=== PATIENT | female | born 1985 | race Caucasian/White ===

== ENCOUNTER 2020-08-08 08:36 | Emergency (ER) | payer SELFPAY ==
[2020-08-08 08:47] VITALS: BP 157/104; PULSE 102; RESP 18; TEMP 36.4; O2SAT 95; BMI 27.3
--- NOTE | 2020-08-08 08:58 | ED_ITS ---
HPI - Extremity Problem General: Chief complaint: Extremity Problem,Nontraumatic Stated complaint: Pain in Finger Time Seen by Provider: 08/08/20 08:50 History of Present Illness: HPI Narrative: Patient has history of painful warts right hand times months worsening. MD Complaint: extremity pain Onset (ago): month(s) Pain Consistency: intermittent Location: right and upper extremity Severity scale (1-10): 2 Quality: aching Radiation: none Relieving factors: nothing Exacerbating factors: palpation Associated symptoms: Reports no associated symptoms Review of Systems Narrative: Patient just moved here from [employer] has not established a primary now has warts on her fingers been present for many months and would like to get those removed Skin/Breast: Reports: other (Warts to fingers right hand) Psych: Denies: anxiety PFSH ED PFSH: Social History (Updated 08/08/20 @ 08:54 by Asher Shah RN) Smoking and tobacco status: current every day smoker cigarettes Packs smoked per day: 1 Alcohol intake: current Alcohol intake frequency: 3 or more drinks per day Alcohol type: hard liquor Substance/Drug Use: never Female Reproductive History: Date of last menstrual period: 07/25/20 Physical Exam Const: COMMON NORMALS: no acute distress Psych: COMMON NORMALS: mental status grossly normal Skin: OTHER: Right middle finger and ring finger have 2 large common warts very large one on the distal aspect of right middle finger and the right ring finger on the lateral aspect is starting a small 1 where the one from the middle fingers rubbing. No erythema no signs of infection. Course Vital Signs: Vital signs: Vital Signs Temperature 97.5 F L 08/08/20 08:47 Pulse Rate 102 H 08/08/20 08:47 Respiratory Rate 18 08/08/20 08:47 Blood Pressure 157/104 08/08/20 08:47 Pulse Oximetry 95 08/08/20 08:47 Discharge Plan Discharge Patient Disposition: Home Clinical Impression: Common wart Condition: Stable Discharge Orders: Discharge ED (Routine); Ordered 08/08/20 Ordered By: Jason Mccormick Discharge Diet: Usual diet Discharge Activity: Resume usual activity Patient Instructions: Common Wart (ED) Activity Restrictions/Additional Instructions: Follow-up at [facility] in [place] today to have wart removed. Can use [id number] products also to help with wart removal Coding Level of Care Code ED Internal Communications Intern for Aramis Hyde
== END 2020-08-08 09:02 | disposition home or self-care (01) ==
PROVIDERS: Emergency Provider Nurse Practitioner Family
DX: B07.8 Other viral warts (principal); F17.210 Nicotine dependence, cigarettes, uncomplicated
CPT/HCPCS: 99281

== ENCOUNTER 2022-03-24 18:35 | Emergency (ER) | payer MEDICAID, SELFPAY ==
[2022-03-24 18:37] VITALS: BP 185/95; PULSE 97; RESP 20; TEMP 36.4; O2SAT 97; BMI 28.5
--- NOTE | 2022-03-24 18:44 | ED_ITS ---
Documented by User: Donaldo Valdez MD 04/01/22 16:35 HPI - Overdose General: Chief Complaint: Psychiatric Symptoms Stated Complaint: OVERDOSE Time Seen by Provider: 03/24/22 18:43 Limitations: altered mental status History of Present Illness: Ms Lilly is a 37-year-old female presenting to the emergency department due to overdose. The patient herself is somewhat hysterical which limits history. She took a bunch of Tylenol earlier this afternoon at some point that was unsure of how much sure exactly what time. Additionally she consumed alcohol. She hoped that she would go to sleep and not wake up. She endorses social stressors associated with her current living and social situation. The patient expresses significant fear of going back to her current living situation though given her mental state has difficulty articulating exactly why other than she just cannot do it anymore. Overall course of symptoms has worsened. Intensity is severe. Psychiatric history apparently includes hallucinations and possible schizophrenia though it does not sound like she is on any current medications associated with that and previously was treated by her friends with LSD and methamphetamines though it sounds like this was not recent. No other specific changes in health, exacerbating, or alleviating factors identified. Intent: suicide attempt and wanted to go to sleep Review of Systems General: Reports: ROS unobtainable due to mental status [facility] ED PFSH: Medical History (Updated 03/24/22 @ 21:44 by Donaldo Valdez MD) Hallucinations HTN (hypertension) Schizophrenia Social History (Updated 03/24/22 @ 18:55 by Donaldo Valdez MD) Smoking and tobacco status: current every day smoker cigarettes Packs smoked per day: 1 Alcohol intake: current Alcohol intake frequency: 3 or more drinks per day Alcohol type: hard liquor Female Reproductive History: Date of last menstrual period: 07/25/20 Physical Exam Const: COMMON NORMALS: alert GENERAL APPEARANCE: well developed, in distress (psychiatric) and anxious HENMT: COMMON NORMALS: normocephalic and atraumatic HEAD & SCALP: normocephalic and atraumatic Eye: COMMON NORMALS: conjunctivae normal CONJUNCTIVA: Yes conjunctivae normal SCLERA: sclerae normal Neck/C-Spine: COMMON NORMALS: supple GENERAL: Yes trachea midline Resp: COMMON NORMALS: clear to auscultation bilaterally EFFORT & INSPECTION: Yes able to speak in complete sentences AUSCULTATION: clear to auscultation bilaterally Cardio: COMMON NORMALS: regular rate and regular rhythm RATE: regular rate RHYTHM: regular rhythm GI: COMMON NORMALS: Soft to palpation PALPATION: Yes Soft to palpation and No Tenderness to palpation present (GI) Extremity: GENERAL: Yes normal exam except as noted and No edema Neuro: COMMON NORMALS: moves all extremities SENSORIUM/ORIENTATION: Yes alert and No Orientation impaired Psych: ATTITUDE: Yes paranoid and Yes bizarre ACTIVITY/MOTOR BEHAVIOR: Yes psychomotor agitation SPEECH: Yes rapid MOOD & AFFECT: Yes anxious, Yes tearful and Yes fearful THOUGHT CONTENT: Yes Suicidality present INSIGHT: Poor insight present (Psych) JUDGEMENT: Poor judgement present (Psych) Course Vital Signs: Vital signs: Vital Signs Temperature 97.6 F 03/24/22 18:37 Pulse Rate 74 03/25/22 13:05 Respiratory Rate 16 03/25/22 13:05 Blood Pressure 118/71 03/25/22 13:05 Pulse Oximetry 98 03/25/22 13:05 Oxygen Delivery Me thod 03/25/22 00:49 MDM - Overdose Medical Decision Making 37-year-old female presenting with reported suicide attempt and psychiatric symptoms. Patient is nontoxic on exam and ABCs are intact. She appears somewhat hysterical/clinically intoxicated. This improved with anxiolysis. EKG shows sinus rhythm with no significant abnormalities. Labs notable for normal white blood cell count, hemoglobin normal. Metabolic panel without acute electrolyte derangement. Mild transaminitis AST 67, ALT 97 which is likely chronic related to alcohol abuse. No evidence of urinary tract infection. hCG is negative. Toxic ingestions notable for negative salicylate and acetaminophen level. Ethyl alcohol to 60 mg/dL. UDS positive for amphetamines and marijuana, also positive for benzodiazepines that these were administered prior to urine collection and may be iatrogenic positive. Based on ED evaluation and clinical history provided there is no indication for imaging. Discussed case with poison control. Given laboratory findings and reported history extremely low clinical suspicion for actual frequent Tylenol use or acute overdose. Based on poison control recommendations plan to repeat liver function and Tylenol level at approximately 6 hours. Repeat liver function and Tylenol levels are pending. If similar the patient does not require any further medical observation period as the patient denies history of chronic Tylenol ingestion and there is no toxicology literature support that I am aware of for increased acetaminophen levels beyond point of testing as the patient has been under one-to-one observation and has not taken any Tylenol since arriving in the emergency department. Please see Dr. Shay's addendum for final results. Based on ED evaluation at this point there is no obvious condition that would preclude the patient from inpatient management of psychiatric symptoms assuming no significant changes in lab studies. I believe that given the patient's reported symptoms and presenting state that she requires inpatient evaluation and stabilization as well as treatment. As we do not currently have bed availability we will plan to call around for placement. Care handed off to Dr. Shay pending placement. Medical Records I reviewed the patient's medical records. Lab Data I reviewed the patient's lab results. : 03/24/22 18:56 03/24/22 18:56 Laboratory Results WBC 7.6 10^3/uL (4.0-10.0) 03/24/22 18:56 RBC 4.44 10^6/uL (4.1-5.3) 03/24/22 18:56 Hgb 12.4 g/dL (11.5-15.3) 03/24/22 18:56 Hct 37.9 % (37.0-47.0) 03/24/22 18:56 MCV 85.4 fl (81-99) 03/24/22 18:56 MCH 27.9 pg (28.0-34.0) L 03/24/22 18:56 MCHC 32.7 g/dL (30.0-36.0) 03/24/22 18:56 RDW 18.7 % (12.1-15.1) H 03/24/22 18:56 Plt Count 345 10^3/cmm (130-400) 03/24/22 18:56 MPV 9.3 fL (7.4-10.4) 03/24/22 18:56 Neut % (Auto) 55.9 % 03/24/22 18:56 Lymph % (Auto) 34.2 % 03/24/22 18:56 Lipscomb % (Auto) 4.6 % 03/24/22 18:56 Eos % (Auto) 4.2 % 03/24/22 18:56 Baso % (Auto) 0.8 % 03/24/22 18:56 Neut # (Auto) 4.24 10^3/uL (1.8-7.7) 03/24/22 18:56 Lymph # (Auto) 2.6 10^3/uL (0.8-4.8) 03/24/22 18:56 Lipscomb # (Auto) 0.4 10^3/uL (0.2-0.9) 03/24/22 18:56 Eos # (Auto) 0.3 10^3/uL (0.0-0.8) 03/24/22 18:56 Baso # (Auto) 0.1 10^3/uL (0.0-0.1) 03/24/22 18:56 Nucleated RBC % (auto) 0 % 03/24/22 18:56 Nucleated RBCs # 0.0 /100WBC 03/24/22 18:56 Sodium 139 mmol/L (136-145) 03/24/22 18:56 Potassium 4.1 mmol/L (3.5-5.1) 03/24/22 18:56 Chloride 103 mmol/L (98-107) 03/24/22 18:56 Carbon Dioxide 22 mmol/L (22-29) 03/24/22 18:56 Anion Gap 18.1 (5-19) 03/24/22 18:56 BUN 13 mg/dL (6-20) 03/24/22 18:56 Creatinine 0.6 mg/dL (0.5-0.9) 03/24/22 18:56 GFR Calculation 112.5 mL/min (90-130) 03/24/22 18:56 Glucose 79 mg/dL (65-115) 03/24/22 18:56 Calculated Osmolality 287 mOsm/kg (285-295) 03/24/22 18:56 Calcium 9.2 mg/dL (8.5-10.5) 03/24/22 18:56 Total Bilirubin 0.4 mg/dL (0.15-1.2) 03/24/22 23:35 Direct Bilirubin 0.20 mg/dL (0.00-0.30) 03/24/22 23:35 AST 58 U/L (0-32) H 03/24/22 23:35 ALT 84 U/L (0-33) H 03/24/22 23:35 Alkaline Phosphatase 87 U/L (35-105) 03/24/22 23:35 Total Protein 7.2 g/dL (6.6-8.7) 03/24/22 23:35 Albumin 3.9 g/dL (3.5-5.2) 03/24/22 23:35 Globulin 3.3 g/dL (1.3-4.6) 03/24/22 23:35 TSH 0.80 uIU/mL (0.27-4.20) 03/24/22 18:56 HCG, Qual Negative (Negative) 03/24/22 19:18 Urine Color Yellow (Yellow) 03/24/22 19:18 Urine Appearance Clear (CLEAR) 03/24/22 19:18 Urine pH 5 (5-7) 03/24/22 19:18 Ur Specific Stephan 1.025 (1.005-1.030) 03/24/22 19:18 Urine Protein Neg (Negative) 03/24/22 19:18 Urine Glucose (UA) Norm (Normal) 03/24/22 19:18 Urine Ketones Negative (Negative) 03/24/22 19:18 Urine Blood Neg (Negative) 03/24/22 19:18 Urine Nitrate Negative (Negative) 03/24/22 19:18 Urine Bilirubin Neg (Negative) 03/24/22 19:18 Urine Urobilinogen Neg mg/dL (Negative) 03/24/22 19:18 Ur Leukocyte Esterase Trace (Negative) H 03/24/22 19:18 Urine RBC None /hpf (0-2) 03/24/22 19:18 Urine WBC 0-4 /hpf (0-5) H 03/24/22 19:18 Ur Squamous Epith Cells 5-10 /hpf (0-5) H 03/24/22 19:18 Amorphous Sediment Trace /hpf 03/24/22 19:18 Urine Bacteria Trace /hpf (NONE) 03/24/22 19:18 Urine Mucus Trace /hpf 03/24/22 19:18 Salicylates < 0.3 mg/dL (3-10) L 03/24/22 18:56 Urine Opiates Screen Negative ng/mL (Negative) 03/24/22 19:18 Acetaminophen < 5.0 ug/mL (10-30) L 03/24/22 23:35 Ur Barbiturates Screen Negative ng/mL (Negative) 03/24/22 19:18 Ur Phencyclidine Scrn Negative ng/mL (Negative) 03/24/22 19:18 Ur Amphetamines Screen Positive ng/mL (Negative) H 03/24/22 19:18 U Benzodiazepines Scrn Positive ng/mL (Negative) H 03/24/22 19:18 Urine Cocaine Screen Negative ng/mL (Negative) 03/24/22 19:18 U Marijuana (THC) Screen Positive ng/mL (Negative) H 03/24/22 19:18 Ethyl Alcohol < 10 mg/dL (0-10) 03/25/22 05:18 SARS-CoV-2 Ag (Rapid) negative (Negative) 03/24/22 19:00 Discharge Plan Discharge Patient Disposition: Xfer Psychiatric Hosp Clinical Impression: Suicidal ideation, Acute psychosis, Polysubstance abuse Condition: Stable Patient Instructions: Opioid Safety, Pain Management Coding Level of Care Code ED Store Specialist for Chg Fwd Exam Comprehensive Documented by User: Viral Shay DO 03/25/22 05:05 HPI - Overdose General: Chief Complaint: Psychiatric Symptoms Stated Complaint: OVERDOSE Time Seen by Provider: 03/24/22 18:43 PFSH ED PFSH: Medical History (Updated 03/24/22 @ 21:44 by Donaldo Valdez MD) Hallucinations HTN (hypertension) Schizophrenia Social History (Updated 03/24/22 @ 18:55 by Donaldo Valdez MD) Smoking and tobacco status: current every day smoker cigarettes Packs smoked per day: 1 Alcohol intake: current Alcohol intake frequency: 3 or more drinks per day Alcohol type: hard liquor Course Vital Signs: Vital signs: Vital Signs Temperature 97.6 F 03/24/22 18:37 Pulse Rate 74 03/25/22 13:05 Respiratory Rate 16 03/25/22 13:05 Blood Pressure 118/71 03/25/22 13:05 Pulse Oximetry 98 03/25/22 13:05 Oxygen Delivery Me thod 03/25/22 00:49 MDM - Overdose Medical Decision Making 37-year-old female presenting with reported suicide attempt and psychiatric symptoms. Patient is nontoxic on exam and ABCs are intact. She appears somewhat hysterical/clinically intoxicated. This improved with anxiolysis. EKG shows sinus rhythm with no significant abnormalities. Labs notable for normal white blood cell count, hemoglobin normal. Metabolic panel without acute electrolyte derangement. Mild transaminitis AST 67, ALT 97 which is likely chronic related to alcohol abuse. No evidence of urinary tract infection. hCG is negative. Toxic ingestions notable for negative salicylate and acetaminophen level. Ethyl alcohol to 60 mg/dL. UDS positive for amphetamines and marijuana, also positive for benzodiazepines that these were administered prior to urine collection and may be iatrogenic positive. Based on ED evaluation and clinical history provided there is no indication for imaging. Discussed case with poison control. Given laboratory findings and reported history extremely low clinical suspicion for actual frequent Tylenol use or acute overdose. Based on poison control recommendations plan to repeat liver function and Tylenol level at approximately 6 hours. Repeat liver function and Tylenol levels are pending. If similar the patient does not require any further medical observation period as the patient denies history of chronic Tylenol ingestion and there is no toxicology literature support that I am aware of for increased acetaminophen levels beyond point of testing as the patient has been under one-to-one observation and has not taken any Tylenol since arriving in the emergency department. Please see Dr. Shay's addendum for final results. Based on ED evaluation at this point there is no obvious condition that would preclude the patient from inpatient management of psychiatric symptoms assuming no significant changes in lab studies. I believe that given the patient's reported symptoms and presenting state that she requires inpatient evaluation and stabilization as well as treatment. As we do not currently have bed availability we will plan to call around for placement. Care handed off to Dr. Shay pending placement. 37-year-old female checked out to me by the previous physician as above. Tylenol remained nondetectable. She remains medically stable, although she was quite intoxicated initially. Alcohol level is 260. We are repeating this now (4:20 AM) to ensure that this is coming down appropriately as well. We are still attempting to find placement for this patient. She will be checked out to the oncoming physician at shift change. Lab Data : 03/24/22 18:56 03/24/22 18:56 Laboratory Results WBC 7.6 10^3/uL (4.0-10.0) 03/24/22 18:56 RBC 4.44 10^6/uL (4.1-5.3) 03/24/22 18:56 Hgb 12.4 g/dL (11.5-15.3) 03/24/22 18:56 Hct 37.9 % (37.0-47.0) 03/24/22 18:56 MCV 85.4 fl (81-99) 03/24/22 18:56 MCH 27.9 pg (28.0-34.0) L 03/24/22 18:56 MCHC 32.7 g/dL (30.0-36.0) 03/24/22 18:56 RDW 18.7 % (12.1-15.1) H 03/24/22 18:56 Plt Count 345 10^3/cmm (130-400) 03/24/22 18:56 MPV 9.3 fL (7.4-10.4) 03/24/22 18:56 Neut % (Auto) 55.9 % 03/24/22 18:56 Lymph % (Auto) 34.2 % 03/24/22 18:56 Lipscomb % (Auto) 4.6 % 03/24/22 18:56 Eos % (Auto) 4.2 % 03/24/22 18:56 Baso % (Auto) 0.8 % 03/24/22 18:56 Neut # (Auto) 4.24 10^3/uL (1.8-7.7) 03/24/22 18:56 Lymph # (Auto) 2.6 10^3/uL (0.8-4.8) 03/24/22 18:56 Lipscomb # (Auto) 0.4 10^3/uL (0.2-0.9) 03/24/22 18:56 Eos # (Auto) 0.3 10^3/uL (0.0-0.8) 03/24/22 18:56 Baso # (Auto) 0.1 10^3/uL (0.0-0.1) 03/24/22 18:56 Nucleated RBC % (auto) 0 % 03/24/22 18:56 Nucleated RBCs # 0.0 /100WBC 03/24/22 18:56 Sodium 139 mmol/L (136-145) 03/24/22 18:56 Potassium 4.1 mmol/L (3.5-5.1) 03/24/22 18:56 Chloride 103 mmol/L (98-107) 03/24/22 18:56 Carbon Dioxide 22 mmol/L (22-29) 03/24/22 18:56 Anion Gap 18.1 (5-19) 03/24/22 18:56 BUN 13 mg/dL (6-20) 03/24/22 18:56 Creatinine 0.6 mg/dL (0.5-0.9) 03/24/22 18:56 GFR Calculation 112.5 mL/min (90-130) 03/24/22 18:56 Glucose 79 mg/dL (65-115) 03/24/22 18:56 Calculated Osmolality 287 mOsm/kg (285-295) 03/24/22 18:56 Calcium 9.2 mg/dL (8.5-10.5) 03/24/22 18:56 Total Bilirubin 0.4 mg/dL (0.15-1.2) 03/24/22 23:35 Direct Bilirubin 0.20 mg/dL (0.00-0.30) 03/24/22 23:35 AST 58 U/L (0-32) H 03/24/22 23:35 ALT 84 U/L (0-33) H 03/24/22 23:35 Alkaline Phosphatase 87 U/L (35-105) 03/24/22 23:35 Total Protein 7.2 g/dL (6.6-8.7) 03/24/22 23:35 Albumin 3.9 g/dL (3.5-5.2) 03/24/22 23:35 Globulin 3.3 g/dL (1.3-4.6) 03/24/22 23:35 TSH 0.80 uIU/mL (0.27-4.20) 03/24/22 18:56 HCG, Qual Negative (Negative) 03/24/22 19:18 Urine Color Yellow (Yellow) 03/24/22 19:18 Urine Appearance Clear (CLEAR) 03/24/22 19:18 Urine pH 5 (5-7) 03/24/22 19:18 Ur Specific Stephan 1.025 (1.005-1.030) 03/24/22 19:18 Urine Protein Neg (Negative) 03/24/22 19:18 Urine Glucose (UA) Norm (Normal) 03/24/22 19:18 Urine Ketones Negative (Negative) 03/24/22 19:18 Urine Blood Neg (Negative) 03/24/22 19:18 Urine Nitrate Negative (Negative) 03/24/22 19:18 Urine Bilirubin Neg (Negative) 03/24/22 19:18 Urine Urobilinogen Neg mg/dL (Negative) 03/24/22 19:18 Ur Leukocyte Esterase Trace (Negative) H 03/24/22 19:18 Urine RBC None /hpf (0-2) 03/24/22 19:18 Urine WBC 0-4 /hpf (0-5) H 03/24/22 19:18 Ur Squamous Epith Cells 5-10 /hpf (0-5) H 03/24/22 19:18 Amorphous Sediment Trace /hpf 03/24/22 19:18 Urine Bacteria Trace /hpf (NONE) 03/24/22 19:18 Urine Mucus Trace /hpf 03/24/22 19:18 Salicylates < 0.3 mg/dL (3-10) L 03/24/22 18:56 Urine Opiates Screen Negative ng/mL (Negative) 03/24/22 19:18 Acetaminophen < 5.0 ug/mL (10-30) L 03/24/22 23:35 Ur Barbiturates Screen Negative ng/mL (Negative) 03/24/22 19:18 Ur Phencyclidine Scrn Negative ng/mL (Negative) 03/24/22 19:18 Ur Amphetamines Screen Positive ng/mL (Negative) H 03/24/22 19:18 U Benzodiazepines Scrn Positive ng/mL (Negative) H 03/24/22 19:18 Urine Cocaine Screen Negative ng/mL (Negative) 03/24/22 19:18 U Marijuana (THC) Screen Positive ng/mL (Negative) H 03/24/22 19:18 Ethyl Alcohol < 10 mg/dL (0-10) 03/25/22 05:18 SARS-CoV-2 Ag (Rapid) negative (Negative) 03/24/22 19:00 Discharge Plan Discharge Patient Disposition: Xfer Psychiatric Hosp Clinical Impression: Suicidal ideation, Acute psychosis, Polysubstance abuse Condition: Stable Patient Instructions: Opioid Safety, Pain Management Coding Level of Care Code ED Store Specialist for Chg Fwd Exam Comprehensive
--- NOTE | 2022-03-24 18:51 | ECG_ITS ---
[facility] Test Date: 2022-03-24 Pat Name: Hamida Lilly Department: Room: Gender: Female [employer]: : 1985 Requested By: Donaldo Valdez Order Number: [id number] Tanner MD: Doroteo Pichardo M.D. Measurements Intervals [place] Rate: 79 P: 16 MO: 139 QRS: 79 QRSD: 97 T: 67 QT: 428 QTc: 492 Interpretive Statements SINUS RHYTHM No previous ECG available for comparison Electronically Signed On 03-25-2022 10:15:27 CDT by Doroteo Pichardo M.D. [email or web address]
--- NOTE | 2022-03-24 19:08 | PC.NURSE ---
REPORT GIVEN TO [facility].
[2022-03-24 19:13] LABS: Basophils # 0.1 10^3/uL (0.0-0.1); Basophils % 0.8 %; Eosinophils # 0.3 10^3/uL (0.0-0.8); Eosinophils % 4.2 %; Hematocrit 37.9 % (37.0-47.0); Hemoglobin 12.4 g/dL (11.5-15.3); Lymphocytes # 2.6 10^3/uL (0.8-4.8); Lymphocytes % 34.2 %; Mean Corpuscular HGB Conc 32.7 g/dL (30.0-36.0); Mean Corpuscular Hemoglobin 27.9 pg (28.0-34.0); Mean Corpuscular Volume 85.4 fl (81-99); Mean Platelet Volume 9.3 fL (7.4-10.4); Monocytes # 0.4 10^3/uL (0.2-0.9); Monocytes % 4.6 %; Neutrophils # 4.24 10^3/uL (1.8-7.7); Neutrophils % 55.9 %; Nucleated Red Blood Cells % 0 %; Platelet Count 345 10^3/cmm (130-400); Red Blood Count 4.44 10^6/uL (4.1-5.3); Red Cell Distribution Width 18.7 % (12.1-15.1); White Blood Count 7.6 10^3/uL (4.0-10.0)
[2022-03-24] MEDS: LORazepam 2 mg/mL INJ 1 mL 1 MG IVP ×2 (19:16→20:19)
[2022-03-24 19:23] LABS: SARS Covid-2 Antigen negative (Negative)
[2022-03-24 19:32] LABS: HCG Qualitative Urine. Negative (Negative)
[2022-03-24 20:03] LABS: Alanine Aminotransferase 97 U/L (0-33); Albumin Level 4.2 g/dL (3.5-5.2); Alcohol Level 260 mg/dL (0-10); Alkaline Phosphatase 107 U/L (35-105); Anion Gap 18.1 (5-19); Aspartate Amino Transferase 67 U/L (0-32); Blood Urea Nitrogen 13 mg/dL (6-20); Calcium 9.2 mg/dL (8.5-10.5); Carbon Dioxide 22 mmol/L (22-29); Chloride 103 mmol/L (98-107); Globulin 4.1 g/dL (1.3-4.6); Glomerular Filtration Rate 112.5 mL/min (90-130); Glucose 79 mg/dL (65-115); Osmolality Calculated 287 mOsm/kg (285-295); Potassium 4.1 mmol/L (3.5-5.1); Sodium 139 mmol/L (136-145); Total Bilirubin 0.3 mg/dL (0.15-1.2); Total Protein 8.3 g/dL (6.6-8.7)
[2022-03-24 20:10] LABS: Acetaminophen < 5.0 ug/mL (10-30); Salicylate < 0.3 mg/dL (3-10)
[2022-03-24] MEDS: ziprasidone 20 mg/mL SDV IM (21:06)
[2022-03-24 21:22] LABS: Amphetamines Screen Urine Positive (Negative); Barbiturates Screen Urine Negative (Negative); Benzodiazepines Screen Urine Positive (Negative); Cocaine Screen Urine Negative (Negative); Opiate Screen Urine Negative (Negative); PCP Screen Urine Negative (Negative); THC Screen Urine Positive (Negative)
[2022-03-24 21:23] LABS: Add Urine Culture? No; Add Urine Microscopic? YES; Bacteria Urine TRACE /hpf; Bilirubin Urine Neg (Negative); Blood Urine Neg (Negative); Glucose Urine UA Norm (Normal); Ketones Urine Negative (Negative); Leukocyte Esterase Urine Trace (Negative); Mucus Urine TRACE /hpf; Nitrate Urine Negative (Negative); Protein Urine Neg (Negative); Specific Gravity, Urine 1.025 (1.005-1.030); Urine Appearance Clear (CLEAR); Urine Color Yellow (Yellow); Urobilinogen Urine Neg (Negative); WBC Urine 0-4 /hpf (0-5); pH Urine 5 (5-7)
[2022-03-24 21:24] LABS: Amorphous Sediment Urine TRACE /hpf
[2022-03-25 00:06] LABS: Alanine Aminotransferase 84 U/L (0-33); Albumin Level 3.9 g/dL (3.5-5.2); Alkaline Phosphatase 87 U/L (35-105); Aspartate Amino Transferase 58 U/L (0-32); Globulin 3.3 g/dL (1.3-4.6); Total Bilirubin 0.4 mg/dL (0.15-1.2); Total Protein 7.2 g/dL (6.6-8.7)
[2022-03-25 00:11] LABS: Acetaminophen < 5.0 ug/mL (10-30)
[2022-03-25 00:12] VITALS: BP 114/74; RESP 16; O2SAT 94
[2022-03-25 00:49] VITALS: BP 144/74; PULSE 77; RESP 16; O2SAT 95
[2022-03-25 05:44] LABS: Alcohol Level < 10 mg/dL (0-10)
[2022-03-25] MEDS: folic acid 1 mg Tablet PO (12:56)
[2022-03-25] MEDS: LORazepam 1 mg Tablet PO (12:56)
[2022-03-25] MEDS: multivitamin therapeutic Tablet 1 TAB PO (12:56)
[2022-03-25 13:04] VITALS: BP 118/71; PULSE 18; RESP 16; O2SAT 98
[2022-03-25 13:05] VITALS: BP 118/71; PULSE 74; RESP 16; O2SAT 98
== END 2022-03-25 13:07 | disposition home or self-care (01) ==
PROVIDERS: Emergency Medicine; Emergency Provider Emergency Medicine
DX: R45.851 Suicidal ideations (principal); F19.10 Other psychoactive substance abuse, uncomplicated; F23 Brief psychotic disorder; Z20.822 Contact with and (suspected) exposure to COVID-19
CPT/HCPCS: 80053; 80076; 80306; 80307; 81001; 81025; 84443; 85025; 87426; 93005; 96372; 96374; 96376; 99285; J2060; J3411; J3486